=== PATIENT | female | born 1965 | race African-American/Black ===

== ENCOUNTER 2021-12-03 06:06 | Day surgery (SDC) | payer OTHER ==
[~2021-12-03] VITALS: Ht 175 cm; Wt 124.0 kg
[~2021-12-03 06:06] MED LIST: ADVIL200 M1 PO; AMLODIPINE BESY10 MG PO; MEDROL 4MG DOSEP4 MG PO
[2021-12-03] MEDS ORDERED: VITAMIN B122500 MCG PO (06:19)
[2021-12-03] MEDS ORDERED: VITAMIN D31250 MCG PO (06:19)
--- NOTE | 2021-12-03 12:52 | NUR ---
PT REQUESTED [facility]. FIRST APPT IS 12/05/21 @ 8:00 AM [facility] TO DELIVER A RW. CHOICE FORM SIGNED AND COPY GIVEN.
[2021-12-04 07:06] LABS: BASOPHIL 0.2 % (0-2); EOSINOPHIL 0 % (0-5); HCT 36.5 % (37.0-47.0); HGB 11.8 g/dl (12.5-16.0); LYMPHOCYTE 12.5 % (15-48); MCH 31.6 pg (25.0-31.0); MCHC 32.3 g/dL (32.0-36.0); MCV 97.9 fL (78.0-100.0); MONOCYTE 12.5 % (0-12); MPV 11.1 fL (6.0-9.5); NEUTROPHIL 74.5 % (41-80); NRBC 0; PLT 232 K/uL (150-400); RBC 3.73 M/uL (4.20-5.40); WBC 9.8 K/uL (4.0-10.5)
[2021-12-04 07:27] LABS: BUN/CREAT RATIO (CALC) 19.8 RATIO; CREATININE 0.96 mg/dL (0.51-0.95); POTASSIUM 4.3 mmol/L (3.5-5.1)
[2021-12-04] MEDS ORDERED: FEOSOL325 MG PO (08:42)
[2021-12-04] MEDS ORDERED: ASPIRIN81 MG PO (08:42)
== END 2021-12-04 10:50 | disposition home or self-care (01) ==
LOC: FAS 06:06 → FMS 08:34 → FAS 12-04 10:50
PROVIDERS: Orthopaedic Surgery
DX: M17.11 Unilateral primary osteoarthritis, right knee (principal); I10 Essential (primary) hypertension; F32.A Depression, unspecified; R01.1 Cardiac murmur, unspecified; Z88.0 Allergy status to penicillin; Z79.899 Other long term (current) drug therapy
CPT/HCPCS: 36415; 73560; 80048; 85025; 86850; 86900; 86901; 94010; 94760; 94762; 97110; 97162; 97165; 97530-GP; C1713; C1776; J0171; J0735; J1100; J1170; J1885; J2250; J2270; J2405; J2704; J2795; J3010; J3370; J7040; J7120